=== PATIENT | male | born 1970 | race Caucasian/White ===

== ENCOUNTER 2021-12-24 14:09 | Emergency (ER) | payer SELFPAY ==
[~2021-12-24] VITALS: Ht 170.2 cm; Wt 63.5 kg
[2021-12-24 14:10] VITALS: BP_SYST 95
--- NOTE | 2021-12-24 14:11 | NUR ---
BROUGHT IN BY [facility], TRIAGED, VSS, PT TO WAITING ROOM
--- NOTE | 2021-12-24 14:15 | NUR ---
DR BOLTON EVALUATING PT UPON ARRIVAL
--- NOTE | 2021-12-24 14:22 | NUR ---
PT REFUSED TO WEAR A MASK AND PROCEEDED TO FRONT OF HOSPITAL. DOES NOT WANT TO WAIT IN ER WAITING ROOM
--- NOTE | 2021-12-24 14:47 | NUR ---
PT SLEEPING ON THE FLOOR IN FRONT OF HOSPITAL
--- NOTE | 2021-12-24 15:01 | NUR ---
PT REFUSED TO COME INTO ER TO BE SEEN, LAYING ON GROUND IN FRONT OF HOSPITAL. PT ASKED TO GET UP, ASSISTANCE OFFERED. PT REFUSED. PT LWBS, SECURITY NOTIFIED.
== END 2021-12-24 15:10 | disposition left against medical advice (07) ==
LOC: SED 14:09
DX: S93.402A Sprain of unspecified ligament of left ankle, initial encounter (principal); F10.129 Alcohol abuse with intoxication, unspecified; Y90.6 Blood alcohol level of 120-199 mg/100 ml; X58.XXXA Exposure to other specified factors, initial encounter; Y93.89 Activity, other specified; Y92.89 Other specified places as the place of occurrence of the external cause; Y99.8 Other external cause status
CPT/HCPCS: 99283